=== PATIENT | female | born 1980 | race Caucasian/White ===

== ENCOUNTER 2016-11-15 21:44 | Inpatient (IN) | payer OTHER ==
[2016-11-16] MEDS ORDERED: ONDANSETRON 4 MG/2 ML VIAL ONE (01:07)
[2016-11-16] MEDS: ONDANSETRON 4 MG/2 ML VIAL IVP PRN ×2 (01:20→05:26)
[2016-11-16] MEDS ORDERED: LR 1,000 ML IV PRN (03:41)
[2016-11-16] MEDS ORDERED: OLIVE OIL 118 ML BTL MISC PRN (03:41)
[2016-11-16] MEDS ORDERED: TERBUTALINE SULFATE 1 MG/ML VIAL IV PRN (03:41)
[2016-11-16] MEDS ORDERED: LIDOCAINE 1% 30 ML SDV SC PRN (03:41)
[2016-11-16] MEDS ORDERED: OXYTOCIN/RINGERS LACTATE 1,000 ML IV PRN (03:41)
[2016-11-16] MEDS ORDERED: EPSOM SALT 454 GM TP PRN (03:41)
[2016-11-16 04:06] LABS: % IMMATURE GRANULYOCYTES 0.4 % (0.0-1.1); ABSOLUTE IMMATURE GRANULOCYTES 0.04 10^3/uL (0.00-0.10); ADD DIFF? NO; ADD MORPH? NO; ADD SCAN? NO; ATYPICAL LYMPHOCYTE FLAG 0 (0-99); FRAGMENT RBC FLAG 0 (0-99); HEMATOCRIT 40.6 % (38.0-47.0); HEMOGLOBIN 13.7 g/dL (12.6-16.3); LEFT SHIFT FLG 0 (0-99); LIPEMIA HEMOLYSIS FLAG 80 (0-99); MEAN CELL HEMOGLOBIN 31.2 pg (27.9-34.1); MEAN CELL HEMOGLOBIN CONCENTR. 33.7 g/dL (32.4-36.7); MEAN CELL VOLUME 92.5 fL (81.5-99.8); MEAN PLATELET VOLUME 12.3 fL (8.7-11.7); PLATELET CLUMPS FLAG 0 (0-99); PLATELET COUNT 209 10^3/uL (150-400); RED BLOOD CELL COUNT 4.39 10^6/uL (4.18-5.33)
[2016-11-16] MEDS ORDERED: AMMONIA AROMATIC 1 EACH AMP IH ONE (04:32)
[2016-11-16] MEDS ORDERED: OLIVE OIL 118 ML BTL ONE (04:32)
[2016-11-16] MEDS ORDERED: LIDOCAINE 1% 30 ML SDV ONE (04:32)
[2016-11-16] MEDS ORDERED: MISOPROSTOL 200 MCG TAB ONE (04:33)
[2016-11-16] MEDS ORDERED: OXYTOCIN 10 UNIT/ML VIAL ONE (04:33)
[2016-11-16] MEDS ORDERED: TERBUTALINE SULFATE 1 MG/ML VIAL ONE (04:33)
[2016-11-16] MEDS ORDERED: HYDROCODONE/APAP 5/325 TAB PO PRN (09:34)
[2016-11-16] MEDS ORDERED: SIMETHICONE 80 MG TAB CHEW PO PRN (09:34)
[2016-11-16] MEDS ORDERED: HYDROCORTISONE 0.5% CREAM TP PRN (09:34)
[2016-11-16] MEDS ORDERED: IBUPROFEN 600 MG TAB PO PRN (09:35)
--- NOTE | 2016-11-16 09:38 | OBPROC ---
- Labor and Delivery Onset of Contractions Date: 11/15/16 Onset of Contractions Time: 04:00 Onset of Contractions Type: Spontaneous Rupture of Membranes Date: 11/16/16 Rupture of Membranes Time: 08:22 Rupture of Membranes Type: Spontaneous Amniotic Fluid Color: Clear Dilation Complete Time: 08:30 Delivery Type: Spontaneous Placenta Delivery Date: 11/16/16 Placenta Delivery Time: 09:05 Episiotomy/Laceration: 2nd Degree Repair: 3-0, Vicryl, Other (Specify) (under local-1% plain lidocaine) EBL: 350 Complications: Nuchal Cord (x1; loose-slipped over perineum) - Medications Labor Augmentation/Induction Meds Used: None - Info A Delivery Date: 11/16/16 Delivery Time: 08:56 Sex of Infant: Female Score (1 Min): 8 Score (5 Min): 9
[2016-11-16] MEDS: IBUPROFEN 600 MG TAB PO PRN (10:18)
--- NOTE | 2016-11-16 10:23 | GHP ---
[f rep st] HISTORY AND PHYSICAL DATE OF ADMISSION: 11/15/2016 ADMITTING DIAGNOSES: 1. Intrauterine at 38-4/7 weeks. 2. Nausea, vomiting. 3. Prodromal labor. HISTORY OF PRESENT ILLNESS: The patient is a 36-year-old, 1, para 0, at 39-4/7 weeks with estimated due date 11/25/2016, by last menstrual period , and confirmed by ultrasound at 10 weeks. The patient presents to Labor and Delivery with complaints of nausea, vomiting, unable to keep liquids down, and is concerned about dehydration. She is also complaining of contractions since 0400 this morning that are getting closer every 5 minutes apart for the last few hours and more painful. Denies any leakage of fluid or vaginal bleeding. States, however, she did lose mucous plug. Good movement noted. The patient has had good care at [facility] , and presented in her 1st trimester at 10 weeks. is uncomplicated. On ultrasound, was noted to have arcuate/septate uterus but no issues with contractions or labor throughout the . She did receive the Tdap during the and had a negative Verifi, as well as the trio screen. GBS is negative. PAST OB HISTORY: The patient is a primiparous. GYNECOLOGICAL HISTORY: Age of menarche 14 years. Cycles are every 28 days for 6 days. Last menstrual period 02/18/2016. Positive test 03/18/2016. Patient denies history of abnormal Pap smears or any exposure to sexually transmitted diseases. PAST MEDICAL HISTORY: Remarkable for migraine headaches. Sports-induced asthma. She does have a bulging L4-L5 that causes back pain. PAST SURGICAL HISTORY: Appendectomy in 1998, a right ACL reconstruction in 2000 and 2 meniscus surgeries in 2007. MEDICATIONS: vitamins, DHA, Diclegis, Albuterol inhaler as needed. ALLERGIES: Ceclor, reaction is hives. FAMILY HISTORY: Paternal grandfather with colon cancer. Maternal grandmother with cervical cancer. SOCIAL HISTORY: Patient is , and lives with her . The patient denies any alcohol, tobacco or illicit drug use. LABS: O positive, antibody negative. RPR nonreactive. Rubella immune. Hepatitis B surface antigen negative. HIV negative. Trio screen negative. TSH and free T4 0.7 and 1.26. Pap smear normal. Gonorrhea and chlamydia cultures negative. Verifi negative. Hematocrit 40. One-hour Glucola 129. GBS is negative. PHYSICAL EXAMINATION: VITAL SIGNS: On admission, vital signs are stable. Patient is afebrile. GENERAL: Well-nourished, well-developed female, alert and oriented x3 in no apparent distress. CARDIOVASCULAR: Regular rate and rhythm. LUNGS: Clear to auscultation. ABDOMEN: Gravid, soft, nontender, nondistended. PELVIC: Exam on admission, she was found to be only 1 cm dilated. EXTREMITIES: Normal to inspection without calf tenderness or edema. heart tones, category 1 tracing. On toco, she is jesus every 4-5 minutes. ASSESSMENT AND PLAN: The patient is a 36-year-old, 1, para 0, at 39-4/ 7 weeks, who presents with nausea, vomiting, and prodromal labor. PLAN: 1. Admit to labor and delivery for observation. 2. IV fluids secondary to dehydration. 3. Antiemetics as needed. 4. Expected management. 5. GBS is negative. No prophylactic antibiotics needed. 6. Patient would like to go as natural as possible if labor starts. /[id number]/MODL MTDD
[2016-11-17] MEDS: IBUPROFEN 600 MG TAB PO PRN ×4 (00:09→20:02)
[2016-11-17] MEDS: DOCUSATE SODIUM 100 MG CAP PO PRN ×2 (00:09→07:52)
--- NOTE | 2016-11-17 07:56 | SOAPPROG ---
SOAP Progress Note Assessment/Plan: Assessment: well. right nipple bruising ff@u scant rubra lochia voiding without difficulty pain well managed incision well approximated no ss of infection Plan:po day 4 discharge to home tomorrow 11/17/16 07:59 Subjective: doing well. complaint of constipation . Will begin bowel protocol. Nurses made aware of POC Objective: Vital Signs Temp Pulse Resp BP Pulse Ox 36.7 C 94 14 110/74 96 11/16/16 20:00 11/16/16 20:00 11/16/16 20:00 11/16/16 20:00 11/16/16 20:00 Laboratory Results 11/15/16 22:00 11/16/16 11/17/16 11/18/16 05:59 05:59 05:59 Intake Total 2500 Output Total 2100 Balance 400 Physical Exam - Physical Exam General Appearance: WD/WN, alert Respiratory: chest non-tender, lungs clear, normal breath sounds Cardiac/Chest: regular rate, rhythm Abdomen: non-tender, soft, other (diminished bs complaint of constipation) Pelvic Exam: vaginal bleeding (scant rubra lochia) Skin: normal color, warm/dry Extremities: normal range of motion, non-tender, normal inspection, Jose's sign (negative bilaterally/ dtrs1+ bilaterally) Neuro/Psych: no motor/sensory deficits, alert, normal mood/affect, oriented x 3 ICD10 Worksheet Patient Problems: Problems Problem Status Onset Status post repeat low transverse section Acute - ICD10 Problem Qualifiers (1) Status post repeat low transverse section
[2016-11-17] MEDS ORDERED: MAGNESIUM HYDROXIDE 30 ML UDCUP PO PRN (07:57)
[2016-11-17] MEDS ORDERED: LACTULOSE 20 GM/30 ML UDCUP PO PRN (07:57)
[2016-11-17] MEDS ORDERED: POLYETHYLENE GLYCOL 3350 17 GM PKT PO PRN (07:57)
[2016-11-17] MEDS ORDERED: BISACODYL 10 MG SUPP PR PRN (07:57)
--- NOTE | 2016-11-17 08:35 | SOAPPROG ---
SOAP Progress Note Assessment/Plan: Assessment: well. right nipple bruising ff@u scant rubra lochia voiding without difficulty pain well managed incision well approximated no ss of infection Plan:po day 4 discharge to home tomorrow 11/17/16 07:59 Objective: Vital Signs Temp Pulse Resp BP Pulse Ox 36.7 C 94 14 110/74 96 11/16/16 20:00 11/16/16 20:00 11/16/16 20:00 11/16/16 20:00 11/16/16 20:00 Laboratory Results 11/15/16 22:00 11/16/16 11/17/16 11/18/16 05:59 05:59 05:59 Intake Total 2500 Output Total 2100 Balance 400 ICD10 Worksheet Patient Problems: Problems Problem Status Onset TERM VAGINAL DELIVERY Acute
[2016-11-17] MEDS: SENNOSIDES/DOCUSATE SODIUM TAB PO SCH ×2 (12:25→21:23)
[2016-11-18] MEDS: DOCUSATE SODIUM 100 MG CAP PO PRN (07:46)
[2016-11-18] MEDS: IBUPROFEN 600 MG TAB PO PRN (07:47)
[2016-11-18 08:33] VITALS: BP 111/76; PULSE 83; RESP 16; TEMP 98.4; O2SAT 94
--- NOTE | 2016-11-18 08:44 | OBPROG ---
OBG Progress Note Assessment/Plan: Assessment: s/p PPD # 2 - pt is stable Plan: Continue routine pp care Plan for d/c home today Instructions reviewed No Rx given Cont PNV Pelvic rest RTC in 4 and 6 weeks for pp visit 11/18/16 08:42 Subjective: Pt seen and examined. Doing well, no complaints. Minimal cramping. Moderate lochia. BM x 1. without difficulty. Objective: 11/15/16 22:00 Patient ABO/Rh O POSITIVE 11/15/16 22:00 Temp Pulse Resp BP Pulse Ox 36.9 C 83 16 111/76 94 11/18/16 08:00 11/18/16 08:00 11/18/16 08:00 11/18/16 08:00 11/18/16 08:00 Uterine Position/Fundal Height: Umbilicus -2 Uterine Tone: Firm - Physical Exam General Appearance: WD/WN, alert, no apparent distress Respiratory: lungs clear, normal breath sounds Cardiac/Chest: regular rate, rhythm Abdomen: normal bowel sounds, non-tender, soft, flatus (+) Genitourinary: laceration (intact) Extremities: non-tender, normal inspection Neuro/Psych: alert, normal mood/affect, oriented x 3 ICD10 Worksheet Patient Problems: Problems Problem Status Onset TERM VAGINAL DELIVERY Acute
[2016-11-18] MEDS: SENNOSIDES/DOCUSATE SODIUM TAB PO SCH (11:21)
== END 2016-11-18 11:20 | disposition home or self-care (01) | DRG 775 ==
LOC: FLD 21:44 → OBSVTOIN 21:44 → FOB 11-16 12:11
PROVIDERS: ADMIT Obstetrics & Gynecology; ATTEND Obstetrics & Gynecology
PROC: 0KQM0ZZ Repair Perineum Muscle, Open Approach (ICD-10-PCS; principal; 2016-11-15)
PROC: 10E0XZZ Delivery of Products of Conception, External Approach (ICD-10-PCS; principal; 2016-11-15)
DX: O70.1 Second degree perineal laceration during delivery (principal); O69.82X0 Labor and delivery complicated by other cord entanglement, without compression, not applicable or unspecified; Z3A.38 38 weeks gestation of pregnancy; Z37.0 Single live birth
CPT/HCPCS: J2405; J2590; J3105

== ENCOUNTER → 2016-12-12 | Outpatient (CLI) | payer OTHER | LOC: FLACT 09:44 | PROVIDERS: ATTEND Obstetrics & Gynecology | DX: O92.79 Other disorders of lactation (principal) | CPT/HCPCS: G0463 ==

== ENCOUNTER 2018-11-25 17:15 | Inpatient (IN) | payer OTHER ==
[2018-11-25] MEDS ORDERED: OXYTOCIN/RINGERS LACTATE 1,000 ML IV PRN (20:19)
[2018-11-25] MEDS ORDERED: EPSOM SALT 454 GM TP PRN (20:19)
[2018-11-25] MEDS ORDERED: MISOPROSTOL 200 MCG TAB PR PRN (20:19)
[2018-11-25] MEDS ORDERED: LIDOCAINE 1% 300 MG/30 ML SDV SC PRN (20:19)
[2018-11-25] MEDS ORDERED: OLIVE OIL 118 ML BTL MISC PRN (20:19)
[2018-11-25] MEDS ORDERED: IBUPROFEN 600 MG TAB PO PRN (20:19)
[2018-11-25] MEDS ORDERED: LR 1,000 ML IV PRN (20:19)
--- NOTE | 2018-11-25 20:39 | PDGENHP ---
History and Physical History and Physical: CARE: [facility] HPI: Patient is a 38 yo at 39.1 weeks ega who presents to L&D with complaints of regular painful contractions since 0800 this am. They have gotten stronger throughout the day and are currently q 3-5 minutes- palpate mod/ firm. She was admitted for a labor check at 1730 - contractions were more irregular and mild at that time- cervix changed from 4/80/-1 to 6-7/90/-1. Active baby, intact, denies VB. FHTs were reactive category 1 during labor check - currently category 2 - baseline 140s, mod variability with accels, periodic variable decelerations noted. EDC: 12/01/18 which is based on LMP: 02/18/18 which is known and consistent with Ultrasound at 8 weeks. Her is complicated by: - AMA - h/o migraines - stable and not an issue during - h/o exercise induced asthma Review of Systems: Constitutional: Denies any fever, chills, or fatigue HEENT: denies any visual changes, difficulty swallowing, hearing loss Cardiovascular: Denies any chest pain, palpitations, leg swelling Respiratory: denies any cough, wheezing, or shortness of breathe GI: Denies any nausea, vomiting, diarrhea, constipation : denies any dysuria, urgency, frequency, vaginal bleeding Musculoskeletal: denies any muscle or bone pain Skin: denies any rashes Neuro: denies any headache, seizures, lightheadedness, dizziness, or loss of consciousness Psychiatric: denies any depression, anxiety, or SI/HI thoughts HISTORY: Previous OB history: X1 2017 Past medical history: h/o migraines, exercise induced asthma - neither were issues during Social history: , no alcohol, tobacco or street drug use Past surgical history: 1998 -appendectomy Medications: PNV Allergies (list reaction): Ceclor - hives LABS: Rh: O pos ABS:neg Rubella: Immune HbsAg: NR HIV: NR VDRL: NR 1hr: 113 GC: Neg Chlamydia: Neg GBS: neg PHYSICAL EXAM: Constitutional: WN, A&Ox3 Skin: pink, warm, dry HEENT: normocephalic atraumatic, supple Heart: RRR, no murmur Chest: CTA-B Abdomen: Soft, nontender, gravid SVE: 6---1 Extremities: tr edema, negative janeth's sign Neuro: grossly normal Psych: normal affect assessment: Reassuring FHTs, baseline 140s +accels, intermittent variable decels, moderate variability Contractions: toco q 3-4 mod/firm Assessment: 1) 38 yo G 2 P 1 with IUP@ 39.1 weeks ega 2) active labor 3) GBS neg 4) Cat 2 FHR tracing Plan: 1) Admit to L&D 2) continuous monitoring 3) pain control as patient desires 4) Anticpate
[2018-11-25] MEDS ORDERED: AMMONIA AROMATIC 1 EACH AMP IH ONE (20:42)
[2018-11-25] MEDS ORDERED: LIDOCAINE 1% 300 MG/30 ML SDV ONE (20:42)
[2018-11-25] MEDS ORDERED: TERBUTALINE SULFATE 1 MG/ML VIAL ONE (20:42)
[2018-11-25] MEDS ORDERED: OLIVE OIL 118 ML BTL MISC ONE (20:42)
[2018-11-25] MEDS ORDERED: MISOPROSTOL 200 MCG TAB ONE (20:43)
[2018-11-25] MEDS ORDERED: OXYTOCIN 10 UNIT/ML VIAL ONE (20:43)
[2018-11-25 20:49] LABS: PLATELET COUNT 236 10^3/uL (150-400)
[2018-11-25] MEDS ORDERED: HYDROCODONE/APAP 5/325 TAB PO PRN (22:06)
[2018-11-25] MEDS ORDERED: SIMETHICONE 80 MG TAB CHEW PO PRN (22:06)
[2018-11-25] MEDS ORDERED: HYDROCORTISONE 0.5% CREAM TP PRN (22:06)
[2018-11-25] MEDS ORDERED: ACETAMINOPHEN 325 MG TAB PO PRN (22:06)
--- NOTE | 2018-11-25 22:14 | OBDEL ---
Info Type: Vaginal Presentation at Delivery: Vertex L&D Analgesia/Anesthesia Type: Local GBS+: No Indications for Delivery: Spontaneous Labor Vaginal Delivery - Delivery Provider Delivery Physician/CNM: Allie Reid - Labor and Delivery Onset of Contractions Date: 11/25/18 Onset of Contractions Time: 15:00 Onset of Contractions Type: Spontaneous Rupture of Membranes Date: 11/25/18 Rupture of Membranes Time: 21:36 Rupture of Membranes Type: Spontaneous Amniotic Fluid Color: Clear Dilation Complete Date: 11/25/18 Dilation Complete Time: 21:36 Placenta Delivery Date: 11/25/18 Placenta Delivery Time: 21:46 Total Hours of Labor: 6 Laceration: 1st Degree Repair: 3-0, Vicryl Vaginal Sponge Count Correct: Yes Vaginal Needle Count Correct: Yes Vaginal Sweep Performed: Yes EBL: 150 Delivery Events: None [place] Data MOSHE: 12/01/18 Gestational Age: 39 week(s) and 1 day(s) Garcia Delivery Date: 11/25/18 Delivery Time: 21:40 Sex of : Male Score (1 Min): 8 Score (5 Min): 9 ICD10 Worksheet Patient Problems: Problems Problem Status Onset (spontaneous vaginal delivery) Acute TERM VAGINAL DELIVERY Acute
[2018-11-26] MEDS: IBUPROFEN 600 MG TAB PO PRN ×3 (06:05→17:54)
--- NOTE | 2018-11-26 09:38 | OBPP ---
Progress Note Assessment/Plan: Assessment: 38 y/o P2 s/p ppd # 1 Plan: Routine pp care Anticipate 11/26/18 09:37 Subjective/ Course: 11/26/18 09:37 Patient is doing well this morning. Reports lochia to be light, pain controlled with oral medication, tolerating regular diet and voiding. is going well. Objective: 11/25/18 20:23 Patient ABO/Rh O POSITIVE 11/25/18 20:23 Temp Pulse Resp BP Pulse Ox 36.2 C 97 18 104/61 96 11/26/18 08:32 11/26/18 08:32 11/26/18 08:32 11/26/18 08:32 11/26/18 08:32 Uterine Position/Fundal Height: Umbilicus -1 Uterine Tone: Firm Physical Exam - Physical Exam EENT: PERRL/EOMI, normal ENT inspection Neck: full range of motion Respiratory: normal breath sounds Cardiac/Chest: regular rate, rhythm Extremities: normal range of motion Skin: normal color Neuro/Psych: alert, normal mood/affect, oriented x 3
[2018-11-26] MEDS: DOCUSATE SODIUM 100 MG CAP PO PRN (18:28)
[2018-11-27] MEDS: IBUPROFEN 600 MG TAB PO PRN ×2 (03:07→09:06)
[2018-11-27 08:18] VITALS: BP 100/72
[2018-11-27] MEDS: DOCUSATE SODIUM 100 MG CAP PO PRN (09:06)
--- NOTE | 2018-11-27 10:42 | OBGCSDC ---
General Delivery Information - General Info : 2 Para: 2 Abortions: 0 Type: Vaginal L&D Analgesia/Anesthesia Type: None Admission Date: 11/25/18 Labs: Patient ABO/Rh O POSITIVE 11/25/18 20:23 Hct 42.1 % (38.0-47.0) 11/25/18 20:23 - Hospital Course : 11/26/18 09:37 Patient is doing well this morning. Reports lochia to be light, pain controlled with oral medication, tolerating regular diet and voiding. is going well. 11/27/18 10:40 No c/o. Voiding without difficulty, breast feeding well. Pain well controlled with PO ibuprofen. Plan d/c home and f/u in 2 weeks. Vaginal - Delivery Provider Delivery Physician/CNM: Allie Reid - Diagnosis Labor: Spontaneous Rupture of Membranes Type: Spontaneous Amniotic Fluid Color: Clear Laceration: 1st Degree Repair: 3-0, Vicryl Delivery Events: None - Delivery EBL: 150 Data MOSHE: 12/01/18 Gestational Age: 39 week(s) and 3 day(s) Garcia Delivery Date: 11/25/18 Delivery Time: 21:40 Sex of Infant: Male Score (1 Min): 8 Score (5 Min): 9 Discharge Information - Discharge Information Instruction/Follow Up: Two Weeks, Four Weeks, Six Weeks
== END 2018-11-27 10:30 | disposition home or self-care (01) | DRG 807 ==
LOC: FLD 17:15 → FOB 11-26 00:24
PROVIDERS: ADMIT Advanced Practice Midwife; ATTEND Advanced Practice Midwife
PROC: 0HQ9XZZ Repair Perineum Skin, External Approach (ICD-10-PCS; principal; 2018-11-25)
PROC: 10E0XZZ Delivery of Products of Conception, External Approach (ICD-10-PCS; principal; 2018-11-25)
DX: O70.0 First degree perineal laceration during delivery (principal); Z37.0 Single live birth; Z3A.39 39 weeks gestation of pregnancy
CPT/HCPCS: J2590; J3105